=== PATIENT | male | born 1955 | race American Indian/Alaskan Native ===

== ENCOUNTER 2018-02-05 18:00 | Emergency (ER) | payer SELFPAY ==
[2018-02-05 18:15] VITALS: BP 156/104
--- NOTE | 2018-02-05 18:46 | Emergency Department Report ---
ED Male HPI - General Chief complaint: Urogenital-Male Stated complaint: PAIN WHEN URINATING Time Seen by Provider: 02/05/18 18:33 Source: patient Mode of arrival: Wheelchair Limitations: No Limitations - History of Present Illness Initial comments: Patient is a 62-year-old -[place] male who is having pain with urination. Patient has some suprapubic discomfort and pain while he is trying to force urine out. Patient states only a small amount is able to have been passed since this morning. Patient colonoscopy this morning looking for a polyp. Patient states he has some low back pain as well. Pain is a 6 out of 10 in severity. Patient denies any fevers chills nausea vomiting at this time. - Related Data Previous Rx's Medication Instructions Recorded Last Taken Type Ciprofloxacin HCl [Cipro] 500 mg PO BID #14 tablet 02/05/18 Unknown Rx Allergies Allergy/AdvReac Type Severity Reaction Status Date / Time No Known Allergies Allergy Unverified 09/20/14 09:37 ED Review of Systems ROS: Stated complaint: PAIN WHEN URINATING Other details as noted in HPI Comment: All other systems reviewed and negative ED Past Medical Hx - Past Medical History Previous Medical History?: Yes Hx Hypertension: Yes - Surgical History Past Surgical History?: No - Social History Smoking Status: Never Smoker Substance Use Type: None - Medications Home Medications: Home Medications Medication Instructions Recorded Confirmed Last Taken Type Ciprofloxacin HCl [Cipro] 500 mg PO BID #14 tablet 02/05/18 Unknown Rx ED Physical Exam - General Limitations: No Limitations General appearance: alert, in no apparent distress - Head Head exam: Present: atraumatic, normocephalic - Eye Eye exam: Present: normal appearance - ENT ENT exam: Present: mucous membranes moist - Neck Neck exam: Present: normal inspection - Respiratory Respiratory exam: Present: normal lung sounds bilaterally. Absent: respiratory distress - Cardiovascular Cardiovascular Exam: Present: regular rate, normal rhythm. Absent: systolic murmur, diastolic murmur, rubs, gallop - GI/Abdominal GI/Abdominal exam: Present: soft, tenderness, normal bowel sounds. Absent: distended, guarding, rebound - Rectal Rectal exam: Present: deferred - Extremities Exam Extremities exam: Present: normal inspection - Back Exam Back exam: Present: normal inspection - Neurological Exam Neurological exam: Present: alert, oriented X3 - Psychiatric Psychiatric exam: Present: normal affect, normal mood - Skin Skin exam: Present: warm, dry, intact, normal color. Absent: rash ED Course Vital Signs 02/05/18 18:12 Temperature 98.0 F Pulse Rate 98 H Respiratory 16 Rate Blood Pressure 156/104 O2 Sat by Pulse 98 Oximetry - Reevaluation(s) Reevaluation #1: 02/05/18 18:45 Bedside ultrasound was performed after the patient attempted to urinate. Patient's post void residual was at least greater than 500 mL of urine. Patient was sent to a treatment room for Baez placement. Patient appears to have urinary retention. This retention could be secondary to irritation of the prostate since he had a colonoscopy this morning. ED Medical Decision Making - Medical Decision Making Patient had a Baez catheter placed. Emergency department which was able to drain approximately 600 mL of clear yellow urine. Patient is feeling much improved. Patient be referred to urology for removal. Patient will be placed on Cipro for UTI prophylaxis. Patient be discharged home at this time. Critical care attestation.: If time is entered above; I have spent that time in minutes in the direct care of this critically ill patient, excluding procedure time. ED Disposition Clinical Impression: Urinary retention Disposition: DC-01 TO HOME OR SELFCARE Is pt being admited?: No Does the pt Need Aspirin: No Condition: Stable Instructions: Urinary Retention in Men (ED) Referrals: TEA HAMMOND MD [Staff Physician] - 3-5 Days Time of Disposition: 18:59
== END 2018-02-05 19:37 | disposition home or self-care (01) ==
LOC: ED 18:00
DX: R33.9 Retention of urine, unspecified (principal); I10 Essential (primary) hypertension
CPT/HCPCS: 51702